=== PATIENT | female | born 1970 ===

== ENCOUNTER 2020-03-22 09:33 | Outpatient (CLI) | payer OTHER | END 2020-03-22 09:57 | disposition home or self-care (01) | LOC: SONOGRAMA 09:33 | PROVIDERS: ATTEND Specialist | DX: K40.40 Unilateral inguinal hernia, with gangrene, not specified as recurrent (principal) ==

== ENCOUNTER 2020-04-14 07:16 | Outpatient (CLI) | payer OTHER | END 2020-04-14 07:23 | disposition home or self-care (01) | LOC: NUCLEAR 07:16 | PROVIDERS: ATTEND Specialist | DX: K80.18 Calculus of gallbladder with other cholecystitis without obstruction (principal) | CPT/HCPCS: J2805; A9537; 78227 ==